=== PATIENT | male | born 1955 | race Caucasian/White ===

== ENCOUNTER 2022-10-10 05:34 | Outpatient (CLI) | payer MEDICARE, OTHER ==
[~2022-10-10] VITALS: Ht 175.3 cm; Wt 117.9 kg
[2022-10-11] MEDS ORDERED: ALLO300T2 PO (13:42)
[2022-10-11] MEDS ORDERED: FENO120T5 PO (13:42)
[2022-10-11] MEDS ORDERED: METF-397 PO (13:42)
[2022-10-11] MEDS ORDERED: TIZA2CAP9 PO (13:42)
[2022-10-11] MEDS ORDERED: ASPI-999 PO (13:42)
[2022-10-11] MEDS ORDERED: LISI1TAB44 PO (13:42)
[2022-10-11] MEDS ORDERED: FISH OIL (13:42)
[2022-10-11] MEDS ORDERED: ATOR10TA66 PO (13:42)
== END 2022-10-11 13:51 | disposition home or self-care (01) ==
LOC: PREOP 05:34
PROVIDERS: ATTEND Surgery
DX: Z01.818 Encounter for other preprocedural examination (principal)

== ENCOUNTER 2022-10-17 08:51 | Day surgery (SDC) | payer MEDICARE, OTHER ==
[~2022-10-17] VITALS: Ht 175.3 cm; Wt 117.9 kg
[~2022-10-17 08:51] MED LIST: ALLO300T2 PO; ASPI-999 PO; ATOR10TA66 PO; FENO120T5 PO; FISH OIL; LISI1TAB44 PO; METF-397 PO; TIZA2CAP9 PO
--- NOTE | 2022-10-17 09:11 | Progress Note-Pre Operative ---
Pre-Operative Progress Note Date of Available H&P: Oct 04, 2022 Date H&P Reviewed: Oct 17, 2022 Time H&P Reviewed: 09:09 History & Physical: H&P Reviewed, Patient Examed, No changes noted Pre-Operative Diagnosis: +JAMEY Perez DO Oct 17, 2022 09:11
[2022-10-17] MEDS ORDERED: LACTATED RINGERS 1,000 ML IV STA (09:17)
[2022-10-17 09:23] VITALS: BP 134/83
[2022-10-17] MEDS ORDERED: MIDAZOLAM 2 MG/2 ML (VERSED) VIAL ONE (09:37)
[2022-10-17] MEDS ORDERED: PROPOFOL INJECTION 50 ML IV ONE (09:38)
[2022-10-17] MEDS ORDERED: LACTATED RINGERS 1,000 ML IV ONE (09:41)
[2022-10-17 10:05] VITALS: BP 97/54
[2022-10-17 10:10] VITALS: BP 84/54
--- NOTE | 2022-10-17 10:10 | Progress Note-Post Operative ---
Post-Operative Progess Note Surgeon (s)/Elevator Installer Apprentice (s) Surgeon JAMEY MIRANDA DO Elevator Installer Apprentice: MICHELLE StoneII Pre-Operative Diagnosis +Cologuard Post-Operative Diagnosis Diverticula int hemorrhoids Procedure & Operative Findings Date of Procedure 10/17/22 Procedure Performed/Findings Colonoscopy PROCEDURE NOTE: After informed consent was obtained, the patient was brought to the endoscopy suite, placed in bed in left lateral decubitus position. He was administered IV sedation by the CHANGEOVER OPERATOR who then monitored his vitals the entire time, heart rate, blood pressure and pulse ox and the scope was inserted, pushed all the way to about 150 cm and pushed into the cecum, took a picture of appendiceal orifice and noted the ileocecal valve. Then slowly withdrew the scope insufflating to look circumferentially at the grimes starting in the cecum, up the ascending colon to the hepatic flexure, then down the transverse colon, splenic flexure, into the descending colon down in the sigmoid and then into the rectal vault and retroflexed the scope. Took picture of the internal hemorrhoids. I had taken a picture of diverticula on the way in and noted some diverticula on the right side as well. The patient tolerated the procedure. He was recovered in endoscopy suite. Recommended for repeat colonoscopy in 10 years. Anesthesia Type IV sedation by CHANGEOVER OPERATOR Estimated Blood Loss Estimated blood loss (mL): none Specimens/Packing Specimens Removed none JAMEY MIRANDA DO Oct 17, 2022 10:10
--- NOTE | 2022-10-17 10:11 | Endoscopy Discharge Instruct ---
Endo Procedure/Findings Findings 1.: Diverticulosis 2.: Internal Hemorrhoids Discharge Instructions - Activity: You might feel a little sleepy until tomorrow. This is due to the medicine you received to relax you. Until tomorrow, you should: NOT drive a car, operate machinery or power tools. NOT drink any alcoholic beverages. NOT make any important decisions or sign importortant papers. Do not return to work until tomorrow, unless otherwise instructed. Resume previous activities tomorrow. Diet: Start by taking liquids. If you tolerate liquids, advance to solid food. 1.: Colonscopy in 10 years Notify Physician - If you experience excessive bleeding, unusual abdominal pain, fever, or chest pain, contact your doctor immediately. JAMEY MIRANDA DO Oct 17, 2022 10:11
[2022-10-17 10:15] VITALS: BP 93/61
[2022-10-17 10:29] VITALS: BP 106/69
[2022-10-17 10:34] VITALS: BP 106/69
--- NOTE | 2022-10-17 13:30 | Anesthesia-General Post-Op ---
MAC Patient Condition Mental Status/LOC: Same as Preop Cardiovascular: Satisfactory Nausea/Vomiting: Absent Respiratory: Satisfactory Pain: Controlled Complications: Absent Post Op Complications Complications None Follow Up Care/Instructions Patient Instructions None needed. Anesthesiology Discharge Order Discharge Order Patient is doing well, no complaints, stable vital signs, no apparent adverse anesthesia problems. No complications reported per nursing. DOTTIE POWELL CRNA Oct 17, 2022 13:30
== END 2022-10-17 11:00 | disposition home or self-care (01) ==
LOC: ENDO 08:51
PROVIDERS: ATTEND Surgery
DX: K57.30 Diverticulosis of large intestine without perforation or abscess without bleeding (principal); K64.8 Other hemorrhoids; K42.9 Umbilical hernia without obstruction or gangrene; E66.9 Obesity, unspecified; Z68.38 Body mass index [BMI] 38.0-38.9, adult